=== PATIENT | female | born 1990 | race African-American/Black ===

== ENCOUNTER 2020-04-21 10:34 | Emergency (ER) | payer SELFPAY ==
--- NOTE | 2020-04-21 10:35 | NUR ---
PATIENT LEFT WITHOUT BEING SEEN BY DR. DAVIS. NO FURTHER CARE PROVIDED FOR PATIENT.
== END 2020-04-21 10:55 | disposition left against medical advice (07) ==
LOC: MED 10:34
DX: M25.569 Pain in unspecified knee (principal); Z53.21 Procedure and treatment not carried out due to patient leaving prior to being seen by health care provider